=== PATIENT | female | born 1995 | race Caucasian/White ===

== ENCOUNTER 2017-02-26 14:12 | Emergency (ER) | payer OTHER ==
[~2017-02-26] VITALS: Ht 170.2 cm; Wt 80.3 kg
[2017-02-26 14:19] VITALS: Ht 170.2 cm; Wt 80.3 kg
[2017-02-26 14:56] LABS: BASOPHIL % 0.5 % (0-2); PLATELET COUNT 384 x10^3mcL (130-400); RED CELL DISTRIBUTION WIDTH 13.1 % (11.5-14.5)
[2017-02-26 15:10] LABS: ALKALINE PHOSPHATASE 48 U/L (46-116); ALT/SGPT 16 U/L (14-59); AST/SGOT 10 U/L (15-37); BILIRUBIN TOTAL 0.5 mg/dL (0.20-1.00); CARBON DIOXIDE 24.8 mmol/L (21-32); CHLORIDE SERUM 104 mmol/L (98-107); CREATININE SERUM 0.6 mg/dL (0.6-1.0); GFR1 > 60 mL/min; GLUCOSE SERUM 93 mg/dL (74-106); LIPASE 102 IU/L (73-393); POTASSIUM SERUM 3.6 mmol/L (3.5-5.1); SODIUM SERUM 142 mmol/L (136-145); TOTAL PROTEIN, SERUM 7.7 g/dL (6.4-8.2)
[2017-02-26 15:14] LABS: CALCIUM 8.9 mg/dL (8.5-10.1)
[2017-02-26 15:47] VITALS: BP 115/74
== END 2017-02-26 15:47 | disposition home or self-care (01) ==
LOC: ED 14:12
PROVIDERS: Emergency Medicine
DX: K59.00 Constipation, unspecified (principal); R03.0 Elevated blood-pressure reading, without diagnosis of hypertension
CPT/HCPCS: J1885; Q0092

== ENCOUNTER 2018-03-25 21:47 | Emergency (ER) | payer OTHER ==
[~2018-03-25] VITALS: Ht 172.7 cm; Wt 88.5 kg
[2018-03-25 22:13] VITALS: Ht 172.7 cm; Wt 88.5 kg
[2018-03-25 23:16] VITALS: BP 131/81
== END 2018-03-25 23:16 | disposition home or self-care (01) ==
LOC: ED 21:47
DX: S13.4XXA Sprain of ligaments of cervical spine, initial encounter (principal); V49.9XXA Car occupant (driver) (passenger) injured in unspecified traffic accident, initial encounter; Y93.I9 Activity, other involving external motion; Y92.413 State road as the place of occurrence of the external cause; Y99.8 Other external cause status